=== PATIENT | male | born 1985 | race Caucasian/White ===

== ENCOUNTER 2017-02-18 00:35 | Emergency (ER) | payer SELFPAY ==
[~2017-02-18] VITALS: Ht 188 cm; Wt 84.0 kg
[~2017-02-18 00:35] MED LIST: COLACE100 MG PO; LEVAQUIN750 MG PO; MORPHINE SULFAT15 M1 PO; TYLENOL WITH C1 EACH PO
[2017-02-18] MEDS ORDERED: NARCAN4 MG NS (01:53)
[2017-02-18 02:06] LABS: ADD MIUA? YES; BILIRUBIN NEGATIVE; BLOOD NEGATIVE; COLOR YELLOW ((YELLOW)); GLUCOSE (STRIP) NEGATIVE; KETONES 20; LEUKOCYTES NEGATIVE; NITRITE NEGATIVE; PROTEIN (STRIP) 30; SPECIFIC GRAVITY 1.019 (1.000-1.030); UROBILINOGEN 0.2 MG/DL (0.2-1.0)
[2017-02-18 02:17] LABS: AMPHETAMINE NEGATIVE (500 ng/mL); BARBITURATES NEGATIVE (200 ng/mL); BENZODIAZEPINES NEGATIVE (150 ng/mL); COCAINE PRESUMPTIVE POSITIVE (150 ng/mL); INTERNAL CONTROLS VALID? YES; METHADONE NEGATIVE (200 ng/mL); METHAMPHETAMINE NEGATIVE (500 ng/mL); OPIATES (MORPHINE) PRESUMPTIVE POSITIVE (100 ng/mL); OXYCODONE NEGATIVE (100 ng/mL); PHENCYCLIDINE NEGATIVE (25 ng/mL); PROPOXYPHENE NEGATIVE (300 ng/mL); THC CANNABINOIDS PRESUMPTIVE POSITIVE (50 ng/mL); TRICYCLIC ANTIDEPRESSANTS NEGATIVE (300 ng/mL)
[2017-02-18 02:18] LABS: ADD MEDTOX COMMENT Y
[2017-02-18 02:31] VITALS: BP 132/90
[2017-02-18 02:32] LABS: BACTERIA 1+ /HPF; CASTS PRESENT /LPF; EPITHELIAL CELLS RARE /HPF; MUCUS 3+ /LPF; RED BLOOD CELLS NONE SEEN /HPF (0-5); UCUL ADDED? NO; WHITE BLOOD CELLS 0-5 /HPF (0-5)
[2017-02-18 02:33] LABS: FINE GRANULAR CASTS 0-5 /LPF; HYALINE CASTS 0-5 /LPF
== END 2017-02-18 02:31 | disposition home or self-care (01) ==
LOC: EME → EDBD 00:35 → EME 02:31
PROVIDERS: Emergency Medicine
DX: T40.1X1A Poisoning by heroin, accidental (unintentional), initial encounter (principal); Z79.891 Long term (current) use of opiate analgesic; F17.200 Nicotine dependence, unspecified, uncomplicated
CPT/HCPCS: 81003; 84999; 99281; 99284